=== PATIENT | male | born 1980 | race Caucasian/White ===

== ENCOUNTER 2016-07-08 17:41 | Emergency (ER) | payer OTHER ==
[~2016-07-08] VITALS: Wt 114.0 kg
[2016-07-08] MEDS ORDERED: ALBUTEROL 0.5% (NEB) 2.5 MG/0.5 ML AMP INH STA (19:24)
[2016-07-08] MEDS ORDERED: SODIUM CHLORIDE 0.9% 1L BAG IV* STA (19:24)
[2016-07-08] MEDS ORDERED: IBUPROFEN 600 MG TAB PO ONE (19:30)
--- NOTE | 2016-07-08 19:57 | ERA ---
ER Documentation Chief Complaint Date/Time DATE: 07/08/16 TIME: 19:54 Chief Complaint COUGH [id number], SOB X1DAY ALBUTEROL NOT WORKING ABLE TO SPEAK FULL SENTENCES HPI 35-year-old man with a history of asthma states is here for shortness of breath and cough 2 weeks. Patient ran out of his albuterol pump and has had tactile fever today as well. He denies rash, no chest pain, no vomiting or diarrhea, no loss of consciousness, no calf or leg swelling. Patient denies sore throat, earache, headache, neck pain or neck stiffness. Patient denies recent travel or antibiotic use. ROS All systems reviewed and are negative except as per history of present illness. Medications Home Meds Active Scripts Ibuprofen* (Ibuprofen*) 600 Mg Tablet, 600 MG PO Q8 for FEVER, #30 TAB Prov:CORBIN STONE MD 07/08/16 Oseltamivir Phosphate* (Tamiflu*) 75 Mg Capsule, 75 MG PO BID for 5 Days, CAP Prov:CORBIN STONE MD 07/08/16 Prednisone* (Prednisone*) 20 Mg Tab, 40 MG PO DAILY for 4 Days, TAB Prov:CORBIN STONE MD 07/08/16 Albuterol Sulfate* (Proair HFA*) 8.5 Gm Hfa.aer.ad, 2 PUFF INH Q6H Y for WHEEZING AND SOB, #1 INHALER Prov:CORBIN STONE MD 07/08/16 Reported Medications Albuterol Sulfate* (Proair HFA*) 8.5 Gm Hfa.aer.ad, 2 PUFF INH Q4, #1 INHALER 07/08/16 Allergies Allergies: Coded Allergies: No Known Allergy (Unverified , 07/08/16) PMhx/Soc Asthma Medical and Surgical Hx: pt denies Surgical Hx History of Surgery: No Anesthesia Reaction: No Hx Neurological Disorder: No Hx Respiratory Disorders: Yes (asthma) Hx Cardiac Disorders: No Hx Psychiatric Problems: No Hx Miscellaneous Medical Probl: No Hx Alcohol Use: No Hx Substance Use: No Hx Tobacco Use: No Smoking Status: Never smoker FmHx Family History: No diabetes Physical Exam Vitals Vital Signs Date Time Temp Pulse Resp B/P Pulse Ox O2 Delivery O2 Flow Rate FiO2 07/08/16 19:41 100 2.0 07/08/16 19:39 117 25 100 Nasal Cannula 2.0 07/08/16 19:33 Nasal Cannula 2 07/08/16 19:19 101.7 122 24 121/80 98 Nasal Cannula 2.0 07/08/16 18:08 101.9 124 26 118/71 94 Physical Exam GENERAL: Well-developed, well-nourished, man, febrile, dyspnea HEENT: Moist mucous membranes, pink conjunctiva, no cervical spine tenderness or step-off deformities, no goiter, no jaundice or icterus, extraocular movements intact without pain. No submandibular induration, and no pharyngeal erythema NEURO: Alert and oriented 3, cranial nerves II through XII intact bilaterally, pupils equal round reactive to light, no focal deficits or facial asymmetry, sensation intact distally Strength 5/5 in upper and lower extremities bilaterally CARDIAC: Tachycardic and regular, no murmurs rubs or gallops LUNGS: Dense wheezes bilaterally, no crackles or stridor ABDOMEN: Soft nontender, no guarding, no rigidity, no rebound, no psoas sign no obturator sign. Normoactive bowel sounds SKIN: Warm and dry to touch, no abrasions, contusions, or hematomas, no lacerations, no ecchymosis, no target lesions, and without ulcers EXTREMITIES: No clubbing cyanosis or edema, calves are bilaterally symmetrical, no Homans sign, no popliteal cord sign. Distal pulses equal and bilateral PSYCH: Normal affect without agitation or irritability Result Diagram: 07/08/16193207/08/161932 Results 24 hrs Laboratory Tests Test 07/08/16 19:33 White Blood Count 8.310^3/ul Red Blood Count 5.6910^6/ul Hemoglobin 16.0g/dl Hematocrit 49.7% Mean Corpuscular Volume 87.3fl Mean Corpuscular Hemoglobin 28.1pg Mean Corpuscular Hemoglobin Concent 32.2g/dl Red Cell Distribution Width 13.1% Platelet Count 60655^3/UL Mean Platelet Volume 10.0fl Neutrophils % 63.0% Lymphocytes % 18.4% Monocytes % 10.7% Eosinophils % 6.1% Basophils % 0.7% Nucleated Red Blood Cells % 0.0/100WBC Neutrophils # 5.210^3/ul Lymphocytes # 1.510^3/ul Monocytes # 0.910^3/ul Eosinophils # 0.510^3/ul Basophils # 0.110^3/ul Nucleated Red Blood Cells # 0.010^3/ul Prothrombin Time 12.8Sec Prothrombin Time Ratio 1.0 INR International Normalized Ratio 0.96 Activated Partial Thromboplast Time 28.9Sec Sodium Level 140mmol/L Potassium Level 3.9mmol/L Chloride Level 99mmol/L Carbon Dioxide Level 27mmol/L Anion Gap 18 Blood Urea Nitrogen 17mg/dl Creatinine 1.13mg/dl Glucose Level 98mg/dl Lactic Acid Level 1.2mmol/L Calcium Level 9.0mg/dl Total Bilirubin 0.4mg/dl Direct Bilirubin 0.00mg/dl Indirect Bilirubin 0.4mg/dl Aspartate Amino Transf (AST/SGOT) 31IU/L Alanine Aminotransferase (ALT/SGPT) 43IU/L Alkaline Phosphatase 71IU/L Troponin I < 0.012ng/ml Total Protein 8.4g/dl Albumin 4.6g/dl Globulin 3.80g/dl Albumin/Globulin Ratio 1.21 Lipase 25U/L Current Medications Medications (Trade) Dose Ordered Sig/Ifeanyi Route PRN Reason Start Time Stop Time Status Last Admin Dose Admin Sodium Chloride (NS) 3,530 ml BOLUS OVER 2 HOURS STAT IV* 07/08/16 19:24 07/08/16 19:26 DC 07/08/16 20:01 Ibuprofen (Motrin) 600 mg ONCE ONCE PO 07/08/16 19:30 07/08/16 19:31 DC 07/08/16 20:00 Albuterol (Proventil 0.5% (Neb)) 10 mg ONCE STAT INH 07/08/16 19:24 07/08/16 19:26 DC 07/08/16 19:38 Methylprednisolone Sodium Succinate (Solu-Medrol) 125 mg ONCE ONCE IV 07/08/16 20:00 07/08/16 20:06 DC 07/08/16 20:08 Methylprednisolone Sodium Succinate (Solu-Medrol) 125 mg STK-MED ONCE .ROUTE 07/08/16 20:01 07/08/16 20:02 DC Oseltamivir Phosphate (Tamiflu) 75 mg ONCE ONCE PO 07/08/16 21:00 07/08/16 21:01 DC 07/08/16 20:58 Procedures/MDM IV line was established patient was placed on product development actuary rhythm strip revealed a sinus tachycardia at 120 bpm with upright P and T waves. Patient was febrile. Blood cultures have been ordered results are pending I will follow -up. I administered over 3 L normal saline intravenously, albuterol 10 mg via nebulizer, ibuprofen 600 mg p.o., and methylprednisolone 125 mg IV. EKG performed, read by me revealed a sinus tachycardia at 113 bpm, normal axis, narrow QRS complex, no concerning ST elevations or depressions noted. One AP view of the chest performed, read by me reveals no acute infiltrates, normal mediastinum, sharp costophrenic and cardiac borders, no air under the diaphragm. Otherwise unremarkable chest x-ray. CBC and electrolytes were normal, liver function tests were normal, troponin was negative. Influenza A was positive for infection. I treated the patient here with Tamiflu 75 mg p.o. lactic acid was low at 1.2. I repeated physical examination after above medications were administered and just prior to discharge. His oxygen saturation on room air is 97% and normal, respiratory rate 16 breaths per minute, and patient has defervesced. Critical Care: Time: 35 minutes, this was time separate from other procedures. Treatments/Evaluations: Close monitoring and treatment of unstable vital signs, cardiorespiratory, and neurologic status, while maintaining tight balance of fluid, respiratory, and cardiac interventions. Departure Diagnosis: Primary Impression: Acute asthma Additional Impression: Influenza A Condition: Good CORBIN STONE MD Jul 08, 2016 19:57
[2016-07-08] MEDS ORDERED: METHYLPREDNISOLONE 125 MG INJ IV ONE (20:00)
[2016-07-08] MEDS ORDERED: METHYLPREDNISOLONE 125 MG INJ ONE (20:01)
[2016-07-08 20:05] LABS: ADD SCAN DIFF NO
[2016-07-08 20:10] LABS: BASOPHIL # 0.1 10^3/ul (0.0-0.1); BASOPHILS % 0.7 % (0.0-2.0); EOSINOPHILS # 0.5 10^3/ul (0.0-0.5); EOSINOPHILS % 6.1 % (0.0-7.0); HEMATOCRIT 49.7 % (42.0-52.0); LYMPHOCYTES # 1.5 10^3/ul (0.8-2.9); LYMPHOCYTES % 18.4 % (15.0-51.0); MEAN CORPUSCULAR HEMOGLOBIN 28.1 pg (29.0-33.0); MEAN CORPUSCULAR HGB CONC 32.2 g/dl (32.0-37.0); MEAN CORPUSCULAR VOLUME 87.3 fl (82.0-101.0); MONOCYTE # 0.9 10^3/ul (0.3-0.9); MONOCYTES % 10.7 % (0.0-11.0); NEUTROPHIL # 5.2 10^3/ul (1.6-7.5); PLATELET COUNT 230 10^3/UL (140-415); RED BLOOD COUNT 5.69 10^6/ul (4.70-6.10); RED CELL DISTRIBUTION WIDTH 13.1 % (11.5-14.5); WHITE BLOOD COUNT 8.3 10^3/ul (4.8-10.8)
[2016-07-08] MEDS ORDERED: ALBU8.5H3 INH ×2 (20:14→21:07)
[2016-07-08 20:21] LABS: INR 0.96; PROTIME 12.8 Sec (12.2-14.2)
[2016-07-08 20:22] LABS: PARTIAL THROMBOPLASTIN TIME 28.9 Sec (25.0-35.0)
--- NOTE | 2016-07-08 20:24 | RADRPT ---
PROCEDURE: XR Chest. CLINICAL INDICATION: Possible sepsis. TECHNIQUE: Single frontal chest x-ray. COMPARISON: None available. FINDINGS: The cardiomediastinal silhouette is unremarkable. No pneumothorax, pleural effusion or consolidation is seen. No acute osseous abnormality is noted. IMPRESSION: 1. No acute cardiopulmonary abnormality. RPTAT: HH .Candida Larson MD, MD Date Time Electronically viewed and signed by .Candida Larson MD, on 07/08/2016 20:23 .N/
[2016-07-08 20:28] LABS: ALBUMIN 4.6 g/dl (3.3-4.9); CHLORIDE 99 mmol/L (97-110); SODIUM 140 mmol/L (135-144)
[2016-07-08 20:29] LABS: POTASSIUM 3.9 mmol/L (3.5-5.1)
[2016-07-08 20:30] LABS: CREATININE 1.13 mg/dl (0.61-1.24)
[2016-07-08 20:31] LABS: ALBUMIN/GLOBULIN RATIO 1.21; ALKALINE PHOSPHATASE 71 IU/L (42-121); ANION GAP 18 (8-16); ASPARTATE AMINO TRANSFERASE 31 IU/L (15-46); BILIRUBIN,INDIRECT 0.4 mg/dl (0-1.1); BILIRUBIN,TOTAL 0.4 mg/dl (0.2-1.3); BLOOD UREA NITROGEN 17 mg/dl (7-20); CARBON DIOXIDE 27 mmol/L (21-31); GLUCOSE 98 mg/dl (70-220); TOTAL PROTEIN 8.4 g/dl (6.1-8.1)
[2016-07-08 20:32] LABS: ALANINE AMINOTRANSFERASE 43 IU/L (13-69)
[2016-07-08 20:50] LABS: TROPONIN-I < 0.012 ng/ml (0.00-0.12)
[2016-07-08] MEDS ORDERED: OSELTAMIVIR 75 MG CAP PO ONE (21:00)
[2016-07-08] MEDS ORDERED: PRED20TA PO (21:07)
[2016-07-08] MEDS ORDERED: IBUP-1542 PO (21:07)
[2016-07-08] MEDS ORDERED: OSLT75C PO (21:07)
[2016-07-08 21:20] LABS: ADD UMIC YES; URINE BILIRUBIN (Dip) NEGATIVE (NEGATIVE); URINE BLOOD (Dip) 2+ (NEGATIVE); URINE COLOR LT. YELLOW (YELLOW); URINE GLUCOSE (Dip) NEGATIVE (NEGATIVE); URINE KETONES (Dip) NEGATIVE (NEGATIVE); URINE LEUKOCYTE ESTERASE (Dip) NEGATIVE (NEGATIVE); URINE NITRITE (Dip) NEGATIVE (NEGATIVE); URINE TOTAL PROTEIN (Dip) NEGATIVE (NEGATIVE); URINE UROBILINOGEN (Dip) 0.2 E.U./dL (0.1-1.0)
[2016-07-08 21:24] VITALS: BP 106/62; PULSE 117; RESP 20; TEMP 99
[2016-07-08 21:39] LABS: BACTERIA,URINE RARE; SQUAMOUS EPITHELIAL CELL,UR FEW
== END 2016-07-08 21:27 | disposition home or self-care (01) ==
LOC: E/R 17:41
DX: J45.901 Unspecified asthma with (acute) exacerbation (principal); J10.1 Influenza due to other identified influenza virus with other respiratory manifestations; R06.02 Shortness of breath; R50.9 Fever, unspecified
CPT/HCPCS: 36415; 71010; 80053; 81001; 83605; 83690; 84484; 85025; 85610; 85730; 87040; 87086; 87400; 93005; 94644; 96374; 99291; J2930; J7030; 81003

== ENCOUNTER 2017-04-18 11:29 | Emergency (ER) | END 2017-04-18 14:24 | disposition home or self-care (01) ==